=== PATIENT | male | born 1965 | race Caucasian/White ===

== ENCOUNTER 2016-11-26 06:45 | Day surgery (SDC) | payer OTHER ==
[~2016-11-26] VITALS: Ht 177.8 cm; Wt 67.3 kg
[2016-11-26] VITALS (10 sets, daily range): BP systolic 129–162; BP diastolic 76–99; PULSE 42–59; RESP 11–18; O2SAT 98–100
[~2016-11-26 06:45] MED LIST: CeFAZolin Inj 2 GM in IV Premix 1 EACH IV SCH; Lactated Ringer's 1,000 ML IV SCH
[2016-11-26] MEDS ORDERED: Ondansetron 2 mg/mL 2 mL Inj ONE (06:46)
[2016-11-26] MEDS ORDERED: Dexamethasone 4 mg/mL Inj ONE (06:46)
[2016-11-26] MEDS ORDERED: Propofol 10,000 mCg/mL 20 mL Inj ONE (06:46)
[2016-11-26] MEDS ORDERED: Ketamine 10 mg/mL 20 mL Inj ONE (06:46)
[2016-11-26] MEDS ORDERED: fentaNYL-PF 50 mCg/mL 2 mL Inj ONE (06:46)
[2016-11-26] MEDS ORDERED: Lactated Ringer's 1,000 ML IV ONE (07:27)
[2016-11-26] MEDS ORDERED: Lactated Ringer's 500 ML IV PRN (07:56)
[2016-11-26] MEDS ORDERED: Lactated Ringer's 1,000 ML IV SCH (07:56)
--- NOTE | 2016-11-26 07:56 | PCM.HPANE ---
Patient Data Surgeon Admitting Provider: Attending Provider:Devan Curtis MD Primary Care Physician:Laura Other Provider:Germania Lucia Anesthesia Reason for Visit Left Knee Acl Tear Ht/WT & BMI Height (Feet): 5 Height (Inches): 10 Weight (Kilograms): 67.3 Body Mass Index 21.00 Allergies Uncoded Allergies: NUTS (Allergy, Unknown, 11/18/16) Past Anesthesia History Anesthesia History: Denies:: Abnormal Airway, Anesthesia Reactions, Difficult Intubation, Fam Anesthesia Reaction, Fam Malignant Hypertherm, Malignant Hyperthermia Diabetes History Hx Diabetes?: No MRSA MRSA: No Medications Hypertension Medication: No Home Meds Incl Beta Kenna: No No Active Prescriptions or Reported Meds History History of ENT Problems?: No HEENT History: Denies:: Abnormal Airway Difficult Intubation Dysphagia Hearing Problem Sinus Problem TMJ Denture Type: None Teeth Condition: Within Normal Limits Hx of Heart Problems?: No Cardiovascular History: Denies:: AICD Abdominal Aortic Aneurism Atrial Fibrillation Cardiac Surgery Chest Pain Congestive Heart Failure Coronary Artery Disease Edema Heart Murmur Hypertension Irregular Heartbeat Pacemaker Peripheral Vascular Rheumatic Fever Thrombophlebitis Valvular Heart Disease Hx of Respiratory Problem?: Yes Respiratory History: Positive for:: Use of C-PAP Machine Denies:: Asthma COPD Chest Surgery Cough Dyspnea Emphysema Hemoptysis Oxygen Administration Pneumonia Pulmonary Embolism Tuberculosis Use of Inhalers / NEBS Other Resp Pertinent History: 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, resolved on it's own, no residual effects Hx Neurologic Problems?: No Neurological History: Denies:: Alzheimer's Disease Dementia Parkinson's Disease Hx of GI Problems?: No Gastrointestinal History: Denies:: Cirrhosis Diverticulitis Gall Bladder Disease Gastroesphageal Reflux Gastrointestinal Bleeding Heartburn Hepatitis Hiatal Hernia Liver Disease Rectal Bleeding Hx of Problems?: No Genitourinary History: Positive for:: Kidney Stones Denies:: HX of Hemodialysis HX of Peritoneal Dialysis: No Male Hx: Denies:: Prostate Problems Scrotal Mass Testicular Surgery Skin History: Denies:: Pressure Ulcers Hx Musculoskeletal Problems?: No Musculoskeletal History: Denies:: Back Injury Degenerative Joint Joint Replacement Musculoskeletal Trauma Osteoarthritis Rheumatoid Arthritis Hx of Psycho/Social Problems?: No Hx Surgeries?: Yes (ACL repair ) Hx Any Other Health Problems?: No Other History: Positive for:: Hospitalization (1992 knee surgery) Denies:: Cancer Thyroid Disease History Blood Transfusions: Positive for:: Accept Blood Products? Denies:: Blood Transfusions Hx Diabetes: No Hx Alcohol Use: YesAlcoholic Drinks Per Day: 2 beers a nightHx Substance Use: No Stop/Bang Treated for Sleep Apnea?: No Do You Have a CPAP Machine?: No OPAL Risk Assessment: Low Risk, <3 Yes Risk Assessment Category Category 1A: Patient has history of documented sleep apnea, and HAS NOT received any narcotic, sedative or anesthesia administration during this stay. Category 1B: Patient has history of documented sleep apnea, and HAS received any narcotic , sedative or anesthesia administration during this stay Category 2: Patient has SUSPECTED Obstructive Sleep Apnea, and HAS received any narcotic , sedative or anesthesia administration during this stay. Category 3: Patient has SUSPECTED Obstructive Sleep Apnea and HAS NOT received narcotic, sedative or anesthesia administration during this stay. Category 4: Outpatient in Procedural Areas with known sleep apnea or who screen positive for High Risk via the STOP/BANG questionnaire. Exam Exam General Appearance: Alert, Oriented X3, Cooperative, No Acute Distress HEENT/AIRWAY: MP 2 Lungs: Clear to Auscultation, Normal Air Movement Heart: Exam Unremarkable, Regular Rate/Rhythm, No Murmurs/Rubs/Gallops Meds/Labs/Diagnostics Admission Meds Current Medications Lactated Ringer's (Lr) 1,000 ml @ ud STK-MED ONCE IV Last administered on 11/26t 07:27; Start 11/26/16 at 07:27; Stop 11/26/16 at 07:28; Status DC Plan Impression Patient chart reviewed, patient interviewed and anesthestic plan with risks, benefits, and alternatives discussed, and informed consent obtained. NPO per Anesth. Guidelines: Yes ASA Physical Status: ASA1 Normal Healthy Anesthetic Plan: GA Bene/Risks/Altern/Consents: Yes HP Complete Prior to Induction: Yes Randal Hobbs MD Nov 26, 2016 07:56
[2016-11-26] MEDS ORDERED: EPHEDrine Sulfate 50 mg/mL Inj IVPUSH PRN (08:00)
[2016-11-26] MEDS ORDERED: MetoCLOpramide 5 mg/mL 2 mL Inj IVPUSH PRN (08:00)
[2016-11-26] MEDS ORDERED: Dexamethasone 4 mg/mL Inj IVPUSH PRN (08:00)
[2016-11-26] MEDS ORDERED: Ondansetron 2 mg/mL 2 mL Inj IVPUSH PRN (08:00)
[2016-11-26] MEDS ORDERED: fentaNYL-PF 50 mCg/mL 2 mL Inj IVPUSH PRN (08:00)
[2016-11-26] MEDS ORDERED: Phenylephrine 10,000 mCg/mL Inj IVPUSH PRN (08:00)
[2016-11-26] MEDS ORDERED: Bacitracin 50,000 unit Inj IRRIGATION ONE (09:15)
[2016-11-26] MEDS ORDERED: Ropivacaine-PF 0.5% 30 mL Inj INFILTRATE ONE (11:07)
[2016-11-26] MEDS ORDERED: Ketorolac 15 mg/mL Inj IVPUSH ONE (11:10)
[2016-11-26] MEDS ORDERED: HYDROcodone-APAP 5-325 mg Tablet PO PRN (11:10)
--- NOTE | 2016-11-26 11:21 | PCM.ORTHOP ---
Orthopedic Operative Report Date of Service: Nov 26, 2016 Pre Operative Diagnosis Left knee Anterior cruciate ligament reconstruction rupture, bucket-handle medial meniscus tear, chondral malacia Post Operative Diagnosis Same Procedure Left knee arthroscopy, anterior cruciate ligament reconstruction, medial meniscus repair, chondroplasty, partial synovectomy Surgeon Surgeon: Devan Curtis MD Assistants: Aguilar Burciaga Indication for Procedure Left knee anterior cruciate ligament tear with instability Findings Per dictation Details of Procedure NAVAL AIRCREWMAN TACTICAL HELICOPTER SURGEON: During the operation, the services of a physician assistant offset press operator were medically indicated and necessary to provide exposure of the operative site for the surgical procedure and to maintain the limb in a proper position to carry out the operation safely and efficiently. Without the qualified assistant loan processor being present, it would have extended the operative procedure and made the procedure technically more difficult to perform. INDICATIONS: The patient is Caenlo Arreola was a 51-year-old male patient with a prolonged history of left knee giving way. The patient has had continued episodes of instability. The patient has restored their range of motion and is now brought to the operating room for possible two-stage bone grafting, possible ACL reconstruction, possible partial medial and lateral meniscectomy versus medial and lateral meniscal repair, chondroplasty and debridement. The risks, benefits, and alternatives of surgery were discussed with the patient. The risks included but were not limited to infection, bleeding, damage to vessels and nerves, loss of motion, continued pain, re-tear of the meniscus, deep venous thrombosis, and complications due to anesthesia including nerve injury, myocardial infarction, stroke, , etc. The patient stated understanding of the nature of the surgical procedure and gave written and verbal consent to proceed. The x-rays did not show tunnel widening but did show a vertical femoral tunnel from his previous BTB autograft anterior cruciate ligament reconstruction PROCEDURE: The patient was brought to the operating room and placed supine on the operating room table. General anesthesia was induced and a fascia iliacus block was deferred by the patient. The left lower extremity was examined under anesthesia. Range of motion was 0 degrees of hyperextension to 135 degrees of flexion. There was no varus or valgus or posterolateral instability. The patient had no instability to varus or valgus stress at 0 or 30 degrees. The patient had a 2+ Sandi and drawer with a positive pivot shift. The left lower extremity was then prepped and draped in the usual fashion. A tourniquet was placed proximally on the thigh over a bias stockinette. A standard anterolateral parapatellar stab wound was created. The knee joint was entered with a blunt-tipped obturator, followed by the 30-degree video arthroscope. An anteromedial portal was established under arthroscopic control. A routine arthroscopic survey was performed. The suprapatellar pouch was unremarkable. The undersurface of the patella demonstrated grade 2/3 chondral malacia and was debrided with a shaver. The patella appeared to track laterally within the trochlear groove. A small plical band was resected medially which appeared to engage. The medial and lateral gutters were inspected and there were small loose bodies of cartilage which was removed. There was no hypertrophied plica. The popliteal hiatus was entered and was unremarkable. The lateral compartment was entered. The articular surfaces of the lateral femoral condyle was largely well maintained. There was no chondromalacia adjacent to the notch. There was no chondromalacia along the central aspect of the weight bearing lateral tibial plateau. The lateral meniscus was intact and stable to probing. The intercondylar notch was visualized. The anterior cruciate ligament was torn from it's femoral origin. There was an empty lateral wall. Posteromedially there was no loose body seen. The posterior cruciate ligament was visualized and appeared intact. Moderate synovitis was noted anteriorly in the medial and lateral compartment and debrided with a shaver. The medial compartment was entered. The articular surfaces of the medial femoral condyle and medial tibial plateau were visualized. There was 2/3 chondromalacia noted on the medial femoral condyle, and grade 2 chondromalacia noted on the medial tibial plateau. This was debrided with the shaver. The medial meniscus was visualized and a large bucket-handle medial meniscus tear was noted with an intact posterior root. Multiple [employer]hew FasT-Fix sutures were passed after reduction of the meniscus was performed. The meniscus was stable to probing after repair. Moderate synovitis was noted anteriorly in the medial and lateral compartment and debrided with a shaver. Attention was turned to reconstruction of the anterior cruciate ligament. Following exsanguination with an Esmarch bandage the tourniquet was inflated to 300 mm of mercury. Using a motorized shaver a notchplasty was performed, exposing the lateral wall and roof of the notch. The femoral tunnel was noted to be anteriorly and vertical . The stump of the anterior cruciate ligament was debrided. An Arthrex guide was placed intra-articularly between the tibial spines in line with the anterior horn of the lateral meniscus. A Vicente wire was then inserted into the knee through a 2 cm incision made over the proximal medial tibia. The incision was deepened through the subcutaneous tissue with subperiosteal dissection achieved. Bleeding points were coagulated with the Bovie electrocautery. A fresh frozen tibialis allograft was opened and prepared at the back table, accommodating a 9.5 mm graft on the femoral side and 9.5 mm graft on the tibial side. Tibial drilling was then carried out first with a 6 mm followed by a 9.0 mm cylindrical reamer with the guide set at 55 degrees, and a dilator was used to open the tunnel to 9.5. The tunnel appeared to be healed then with the previous BTB graft. The Beath pin was drilled out the femoral cortex and skin. The femoral tunnel was then created, with an Arthrex flipcutter. Depth-gauging confirmed the tunnel length of 37 mm. An Arthrex EndoButton was selected. The graft was inserted intra- articularly and the EndoButton was deployed. The graft was cycled for 17 cycles with 25 pounds of force to pre-load the graft. Tibial fixation was carried out using a 8-10 PEEK Intra-Fix in 10 degrees of flexion with a posterior drawer. At the completion of surgery the patient had a firm stable Sandi. The patient had a 0 firm Sandi and a negative pivot shift. There was no evidence for any roof or lateral wall impingement. The tourniquet was deflated.. The knee was irrigated with two liters of lactated Ringer's solution. Excess fluid was drained. The tibial wounds were then copiously irrigated with bacitracin solution and closed in layers with #0, #2-0 and #3-0 Vicryl. The skin was reapproximated with #4-0 Monocryl. The knee was injected with 20 cc of 0.5% plain ropivacaine and 4 mg of Duramorph. A dry sterile dressing was applied, followed by a bulky bandage and ANDREY stocking. A postoperative TROM brace was applied locked in full extension. The patient was awakened in the Operating Room and transported to the Recovery Room in satisfactory condition. The patient appeared to tolerate the procedure well. At the completion of surgery the patient had soft compartments, palpable pulses , and brisk capillary refill. There were no complications noted. Please keep dressing clean dry and intact. Do not remove dressing until follow- up in clinic. If the dressing become soaked, you may remove the outer gauze and placed Band-Aids on the wounds. You may NOT weight-bear. Do Not Bend Your Knee. You may place a pillow under your heel and NOT your knee. You will follow up in clinic in 10-14 days for suture removal, and placement of new Steri -Strips. You will follow-up with me in clinic, and we will start physical therapy. You will follow-up with me every 6 weeks while you progress in your rehab and will be released once cleared by PT around 9-12 months. Please see me prior to full release. Please keep the affected extremity elevated when possible. Please take aspirin as instructed if prescribed. You will take antibiotics 4 times daily for 3 days. You may use ice and/or heat as needed for comfort. (preferably ice during the first 48-72 hours)Please feel free to call with any further questions, comments, and/or concerns. Grafts, Implants: Implants-See Implant Record Complications There were no periprocedural complications identified. Condition Stable Anesthetic Administered: GA Catheters: None Output, Estimated Blood Loss: 10 Blood Admin during surgery: No Surgical Cast or Splint: Knee Immobilizer Surgical Specimen Removed: No Specimen sent to Pathology: No copies to: Devan Curtis MD, Christopher L MD Nov 26, 2016 11:20
[2016-11-26] MEDS: HYDROmorphone 1 mg/mL Inj IVPUSH PRN ×2 (11:33→11:45)
--- NOTE | 2016-11-26 14:34 | PCM.ANEP1 ---
Post Anesthesia PACU Phase 1 Assessment Vital Signs Vital Signs Date Time Temp Pulse Resp B/P Pulse Ox O2 Delivery O2 Flow Rate FiO2 11/26/16 12:35 44 100 Room Air 11/26/16 12:05 36.3 46 16 156/83 99 Room Air 11/26/16 11:50 46 12 150/84 100 Room Air 11/26/16 11:45 47 14 150/82 99 Room Air 11/26/16 11:40 45 18 153/91 100 Room Air 11/26/16 11:35 36.3 45 11 152/91 100 Room Air 11/26/16 11:30 50 11 149/86 99 Room Air 11/26/16 11:25 59 12 149/85 98 Room Air 11/26/16 11:20 35.9 59 11 162/99 100 Simple Mask 8 11/26/16 08:01 36 42 14 129/76 100 Room Air Anesthetic Administered: GA Level of Alertness: Sleepy, easy to arouse LOBO's with Equal Strength: Yes Pain: No Nausea or Vomiting: No CV Function & Hydration Stable: Yes Airway Device: Oralpharangeal Airway (none) Oxygen Delivery: Simple Mask Lungs: Clear to Auscultation, Normal Air Movement Dermatome Level: Full Sensation PACU Phase 2 Assessment Complications: No Follow up Care: No Patient Instructions Provided: N/A Randal Hobbs MD Nov 26, 2016 14:34
== END 2016-11-26 23:59 | disposition home or self-care (01) ==
LOC: SAS 06:45
PROVIDERS: ATTEND Orthopaedic Surgery
DX: S83.512A Sprain of anterior cruciate ligament of left knee, initial encounter (principal); S83.212A Bucket-handle tear of medial meniscus, current injury, left knee, initial encounter; M22.42 Chondromalacia patellae, left knee; G47.33 Obstructive sleep apnea (adult) (pediatric); Z87.442 Personal history of urinary calculi
CPT/HCPCS: 29882; 29888; C1713; C1762; J0690; J1100; J1170; J1885; J2250; J2270; J2405; J2704; J2795; J3010; J7120